=== PATIENT | female | born 1995 | race African-American/Black ===

== ENCOUNTER 2021-05-15 10:42 | Outpatient (CLI) | payer BC, MEDICAID | END 2021-05-15 10:43 | disposition home or self-care (01) | LOC: CSHULT 10:42 | PROVIDERS: ATTEND Family Medicine | DX: O09.892 Supervision of other high risk pregnancies, second trimester (principal); Z3A.20 20 weeks gestation of pregnancy | CPT/HCPCS: 76805 ==

== ENCOUNTER 2021-08-04 20:45 | Day surgery (SDC) | payer BC, MEDICAID ==
[2021-08-04 21:23] VITALS: BMI 46.3
== END 2021-08-04 23:55 | disposition home or self-care (01) ==
LOC: CSHLD/OP 20:45
PROVIDERS: ATTEND Family Medicine
DX: O99.891 Other specified diseases and conditions complicating pregnancy (principal); R10.2 Pelvic and perineal pain; N89.8 Other specified noninflammatory disorders of vagina; O98.313 Other infections with a predominantly sexual mode of transmission complicating pregnancy, third trimester; A60.00 Herpesviral infection of urogenital system, unspecified; O34.219 Maternal care for unspecified type scar from previous cesarean delivery; Z3A.32 32 weeks gestation of pregnancy; Z79.899 Other long term (current) drug therapy
CPT/HCPCS: 99283

== ENCOUNTER 2021-09-14 12:03 | Outpatient (CLI) | payer BC, MEDICAID, OTHER ==
[2021-09-14 15:40] LABS: Hemoglobin 11.3 g/dL (12.0-15.5); Mean Corpuscular HGB CONC 31.9 g/dL (32.0-36.0); Mean Corpuscular Hemoglobin 28.8 pg (27.0-33.0); Mean Corpuscular Volume 90.1 fl (81.6-98.3); Mean Platelet Volume 12.3 fl (7.4-10.4); Platelet Count 246 10x3/uL (150-450); RBC Distribution Width 14.4 % (11.5-14.5); Red Blood Cell (RBC) Count 3.93 10x6/uL (3.90-5.03); White Blood Cell (WBC) Count 9.3 10x3/uL (3.5-10.5)
[2021-09-14 16:16] LABS: HIV (1/2) Antibody/Antigen Non-Reactive (NonReactive); Syphilis Antibody Nonreactive (Nonreactive); Syphilis Antibody Index 0.05 S/CO (<1.00 Non-Reactive)
[2021-09-15 00:17] LABS: SARS-CoV-2 PCR by NAA Not Detected (NotDetected)
== END 2021-09-14 12:04 | disposition home or self-care (01) ==
LOC: CSHLAB 12:03
PROVIDERS: ATTEND Family Medicine
DX: Z01.812 Encounter for preprocedural laboratory examination (principal); Z20.822 Contact with and (suspected) exposure to COVID-19
CPT/HCPCS: 85027; 86780; 86900; 86901; 87389; U0003; U0005

== ENCOUNTER 2021-09-17 09:57 | Inpatient (IN) | payer BC, MEDICAID, OTHER ==
[2021-09-17] MEDS ORDERED: Promethazine HCl 25 MG/ML VIAL IM PRN ×2 (11:01→11:23)
[2021-09-17] MEDS ORDERED: DEXTROSE IVPB SCH (11:01)
[2021-09-17] MEDS ORDERED: Lactated Ringer's 1,000 ML IV SCH (11:01)
[2021-09-17] MEDS ORDERED: CEFAZOLIN IVPB SCH (11:01)
[2021-09-17] MEDS ORDERED: hydrALAZINE 20 MG/ML VIAL SLOW IVP PRN ×2 (11:01→19:17)
[2021-09-17] MEDS ORDERED: Ondansetron PF 4 MG/2 ML Vial IVP PRN ×3 (11:01→19:17)
[2021-09-17] MEDS ORDERED: Famotidine/PF 20 mg/2ml Vial SLOW IVP PRN (11:01)
[2021-09-17] MEDS ORDERED: Bicitra 30 ML UDCUP PO PRN (11:01)
[2021-09-17 11:05] VITALS: BMI 46.9
[2021-09-17] MEDS ORDERED: Ondansetron PF 4 MG/2 ML Vial ONE (11:13)
[2021-09-17] MEDS ORDERED: Phenylephrine 10 MG/ML VIAL ONE (11:13)
[2021-09-17] MEDS ORDERED: Oxytocin 10 UNITS/ML VIAL ONE ×2 (11:13→13:05)
[2021-09-17] MEDS ORDERED: Ketorolac Tromethamine 30 MG/ML VIAL ONE (11:19)
[2021-09-17] MEDS ORDERED: Naloxone HCl 0.4 mg/ml Vial IV PRN (11:23)
[2021-09-17] MEDS ORDERED: Naloxone HCl 0.4 mg/ml Vial IVP PRN ×2 (11:23)
[2021-09-17] MEDS ORDERED: Ketorolac Tromethamine 30 MG/ML VIAL IVP PRN (11:23)
[2021-09-17] MEDS ORDERED: Hydrocerin (Eucerin) Cream 120 gm Jar TOP PRN (11:23)
[2021-09-17] MEDS ORDERED: Meperidine HCl/PF 25 MG/ML VIAL SLOW IVP PRN (11:23)
[2021-09-17] MEDS ORDERED: Promethazine HCl 25 MG SUPP PR PRN (11:23)
[2021-09-17] MEDS ORDERED: diphenhydrAMINE 50 MG/ML VIAL IVP PRN (11:23)
[2021-09-17] MEDS ORDERED: Fentanyl 100 MCG/2 ML VIAL SLOW IVP PRN (11:23)
[2021-09-17] MEDS ORDERED: Ondansetron HCl/PF 4 MG/2 ML Vial IVP PRN (11:23)
[2021-09-17] MEDS ORDERED: HYDROmorphone 2 MG/ML VIAL SLOW IVP PRN (11:23)
[2021-09-17] MEDS ORDERED: Communication Order-Pharmacy FS SCH (11:30)
[2021-09-17] MEDS ORDERED: Ketorolac Tromethamine 30 MG/ML VIAL IVP SCH (11:30)
[2021-09-17] MEDS ORDERED: Fentanyl 100 MCG/2 ML VIAL ONE (11:41)
[2021-09-17] MEDS ORDERED: Morphine PF 10 MG/10 ML VIAL ONE (11:41)
[2021-09-17 11:42] LABS: Hemoglobin 11.6 g/dL (12.0-15.5); Mean Corpuscular Hemoglobin 28.8 pg (27.0-33.0); Mean Corpuscular Volume 90.1 fl (81.6-98.3); Mean Platelet Volume 11.7 fl (7.4-10.4); Platelet Count 262 10x3/uL (150-450); RBC Distribution Width 14.4 % (11.5-14.5); Red Blood Cell (RBC) Count 4.03 10x6/uL (3.90-5.03); White Blood Cell (WBC) Count 10.2 10x3/uL (3.5-10.5)
[2021-09-17 12:16] LABS: Hep B Surf Ag Non-Reactive S/CO (NonReactive)
[2021-09-17 12:17] LABS: Syphilis Antibody Nonreactive (Nonreactive); Syphilis Antibody Index 0.04 S/CO (<1.00 Non-Reactive)
[2021-09-17 12:21] LABS: HBSAg Index 0.13 S/CO (0-0.99)
[2021-09-17] MEDS ORDERED: ePHEDrine Sulfate 50 MG/10 ML VIAL ONE (12:38)
[2021-09-17] MEDS ORDERED: diphenhydrAMINE 50 MG/ML VIAL ONE (12:56)
[2021-09-17 12:58] LABS: pH (Cord, venous) 7.081 (7.250-7.350)
[2021-09-17] MEDS ORDERED: Bisacodyl 10 MG SUPP PR PRN (19:17)
[2021-09-17] MEDS ORDERED: Boostrix 0.5 ML (Tdap) VIAL IM ONE (19:17)
[2021-09-17] MEDS ORDERED: Simethicone Chewable 80 MG TAB PO PRN (19:17)
[2021-09-17] MEDS ORDERED: HYDROcodone/Acetaminophen 5/325 mg Tablet PO PRN (19:17)
[2021-09-17] MEDS ORDERED: Lanolin Ointment 7 GM TUBE TOP PRN (19:17)
[2021-09-17] MEDS ORDERED: diphenhydrAMINE 25 MG CAP PO PRN (19:17)
[2021-09-17] MEDS: Ferrous Sulfate 325 MG TAB PO SCH (23:20)
[2021-09-17] MEDS: Docusate 100 MG CAP PO SCH (23:20)
[2021-09-17] MEDS: Ketorolac Tromethamine 30 MG/ML VIAL IVP SCH (23:20)
[2021-09-18 04:05] LABS: Hemoglobin 8.9 g/dL (12.0-15.5); Mean Corpuscular Volume 90.6 fl (81.6-98.3); Mean Platelet Volume 11.5 fl (7.4-10.4); Platelet Count 201 10x3/uL (150-450); RBC Distribution Width 14.4 % (11.5-14.5); Red Blood Cell (RBC) Count 3.07 10x6/uL (3.90-5.03); White Blood Cell (WBC) Count 11.9 10x3/uL (3.5-10.5)
[2021-09-18] MEDS: Ketorolac Tromethamine 30 MG/ML VIAL IVP SCH ×2 (05:56→13:27)
[2021-09-18] MEDS: Docusate 100 MG CAP PO SCH ×2 (08:50→21:22)
[2021-09-18] MEDS: Prenatal Vitamin 1 TAB PO SCH (08:50)
[2021-09-18] MEDS: Ferrous Sulfate 325 MG TAB PO SCH ×2 (08:51→21:22)
[2021-09-18] MEDS: Ibuprofen 800 MG TAB PO SCH ×2 (13:30→21:22)
[2021-09-18] MEDS: HYDROcodone/Acetaminophen 5/325 mg Tablet PO PRN (20:13)
[2021-09-19] MEDS: Ibuprofen 800 MG TAB PO SCH ×3 (05:47→21:28)
[2021-09-19] MEDS: Prenatal Vitamin 1 TAB PO SCH (08:57)
[2021-09-19] MEDS: Ferrous Sulfate 325 MG TAB PO SCH ×2 (08:57→21:26)
[2021-09-19] MEDS: Docusate 100 MG CAP PO SCH ×2 (08:57→21:26)
[2021-09-19] MEDS: HYDROcodone/Acetaminophen 5/325 mg Tablet PO PRN (21:27)
[2021-09-20] MEDS: HYDROcodone/Acetaminophen 5/325 mg Tablet PO PRN (05:18)
[2021-09-20] MEDS: Ibuprofen 800 MG TAB PO SCH ×2 (05:18→14:40)
[2021-09-20 08:07] VITALS: BP 113/73; TEMP 97.8
[2021-09-20] MEDS: Prenatal Vitamin 1 TAB PO SCH (08:21)
[2021-09-20] MEDS: Ferrous Sulfate 325 MG TAB PO SCH (08:21)
[2021-09-20] MEDS: Docusate 100 MG CAP PO SCH (08:21)
== END 2021-09-20 16:04 | disposition home or self-care (01) | DRG 787 ==
LOC: CSHLD 09:57 → CSHPP 15:50
PROVIDERS: ADMIT Family Medicine; ATTEND Family Medicine
PROC: 10D00Z1 Extraction of Products of Conception, Low, Open Approach (ICD-10-PCS; principal; 2021-09-17)
PROC: 0UN90ZZ Release Uterus, Open Approach (ICD-10-PCS; 2021-09-17)
DX: O34.211 Maternal care for low transverse scar from previous cesarean delivery (principal); O98.52 Other viral diseases complicating childbirth; Z37.0 Single live birth; Z3A.39 39 weeks gestation of pregnancy; J45.909 Unspecified asthma, uncomplicated; O99.52 Diseases of the respiratory system complicating childbirth; B00.9 Herpesviral infection, unspecified; N73.6 Female pelvic peritoneal adhesions (postinfective); O99.892 Other specified diseases and conditions complicating childbirth
CPT/HCPCS: 51702; 82805; 85027; 86780; 86850; 86900; 86901; 87340; J0690; J1200; J1885; J2274; J2370; J2405; J2590; J3010

== ENCOUNTER 2022-08-02 08:01 | Emergency (ER) | payer OTHER, SELFPAY ==
[2022-08-02] MEDS ORDERED: Tetracaine 0.5% PF 4 ML BOT ONE (08:22)
[2022-08-02] MEDS ORDERED: Fluorescein Opthalmic Strip ONE (08:23)
== END 2022-08-02 09:15 | disposition home or self-care (01) ==
LOC: CSHERS 08:01
DX: S05.02XA Injury of conjunctiva and corneal abrasion without foreign body, left eye, initial encounter (principal); X58.XXXA Exposure to other specified factors, initial encounter
CPT/HCPCS: 99283